=== PATIENT | female | born 1970 | race Caucasian/White ===

== ENCOUNTER 2020-03-22 04:18 | Emergency (ER) | payer SELFPAY ==
[~2020-03-22] VITALS: Ht 172.7 cm; Wt 84.0 kg
[2020-03-22] MEDS ORDERED: NS IV 1000 ML 1,000 ML ONE (05:04)
[2020-03-22] MEDS ORDERED: LORazepam INJ 2 MG/ML (ATIVAN) VIAL IVP ONE (05:30)
--- NOTE | 2020-03-22 05:38 | ED General ---
General Chief Complaint: Overdose Stated Complaint: MEDICATION OVERDOSE Source of Information: Patient Exam Limitations: No Limitations (JIM BRYANT DO) History of Present Illness Date Seen by Provider: Mar 22, 2020 Time Seen by Provider: 17:15 Initial Comments The patient is a pleasant 49-year-old female who presents for evaluation after an accidental overdose of her flecainide. She states that she takes tizanidine muscle relaxer to help with her sleep and this medication looks "exactly the same as my flecainide". She says that tonight she was having difficulty sleeping so she took a dose of the medicine in the evening before bedtime and then she took 3 more at 3:30 AM because she was still not able to sleep. She later found out that all these medications were flecainide and none of them were tizanidine. She states this was completed and accident when she was not trying to harm herself. She denies any depression or suicidal thoughts. She is alert and oriented 4, calm, and appears to be in no distress this time. She states that is normal for her to take 2-3 of her tizanidine pills and an effort to get sleep. Upon arrival the patient's heart rate was in the 140s. Timing/Duration: 1-3 Hours Severity: Moderate Associated Systoms: Denies Symptoms (JIM BRYANT DO) Allergies and Home Medications Allergies Coded Allergies: No Known Drug Allergies (Unverified , 03/22/20) Patient Home Medication List Home Medication List Reviewed: Yes (JIM BRYANT DO) Review of Systems Review of Systems Constitutional: no symptoms reported EENTM: no symptoms reported Respiratory: no symptoms reported Cardiovascular: palpitations Gastrointestinal: no symptoms reported Genitourinary: no symptoms reported Musculoskeletal: no symptoms reported Skin: no symptoms reported Psychiatric/Neurological: Anxiety; Denies Depressed, Denies Emotional Problems Hematologic/Lymphatic: No Symptoms Reported Immunological/Allergic: no symptoms reported (JIM BRYANT DO) All Other Systems Reviewed Negative Unless Noted: Yes (JIM BRYANT DO) Past Unazzas-Avresb-Sgmxaw Hx Past Med/Social Hx: Reviewed Nursing Past Med/Soc Hx (JIM BRYANT DO) Patient Social History Recent Foreign Travel: No Contact w/Someone Who Travel: No (JIM BRYANT DO) Physical Exam Vital Signs Vital Signs - First Documented 03/22/20 03/22/20 05:21 08:50 Temp 36.6 Pulse 140 Resp 17 B/P (MAP) 190/108 (135) Pulse Ox 99 O2 Delivery Room Air (FARRAH NORRIS DO) Vital Signs Capillary Refill : Less Than 3 Seconds (JIM BRYANT DO) Height, Weight, BMI Height: '" Weight: lbs. oz. kg; 28.00 BMI Method: General Appearance: No Apparent Distress, WD/WN, Anxious Eyes: Bilateral Eye Normal Inspection, Bilateral Eye PERRL, Bilateral Eye EOMI HEENT: PERRL/EOMI, Pharynx Normal Neck: Full Range of Motion, Non Tender, Supple Respiratory: Lungs Clear, Normal Breath Sounds, No Accessory Muscle Use, No Respiratory Distress Cardiovascular: No Edema, No Murmur, Tachycardia Gastrointestinal: Normal Bowel Sounds, No Pulsatile Mass, Soft Extremity: Normal Capillary Refill, Normal Range of Motion, Non Tender Neurologic/Psychiatric: Alert, Oriented x3, No Motor/Sensory Deficits, Normal Mood/Affect, early childhood associate II-XII Norm as Tested; No Depressed Affect Skin: Normal Color, Warm/Dry (JIM BRYANT DO) Progress/Results/Core Measures Suspected Sepsis SIRS Temperature: Pulse: 140 Respiratory Rate: 17 Blood Pressure 190 /108 Mean: 135 (JIM BRYANT DO) Results/Orders Lab Results Laboratory Tests Test 03/22/20 05:05 03/22/20 05:52 Range/Units White Blood Count 11.4 H 4.3-11.0 10^3/uL Red Blood Count 4.62 4.35-5.85 10^6/uL Hemoglobin 13.4 11.5-16.0 G/DL Hematocrit 41 35-52 % Mean Corpuscular Volume 89 80-99 FL Mean Corpuscular Hemoglobin 29 25-34 PG Mean Corpuscular Hemoglobin Concent 33 32-36 G/DL Red Cell Distribution Width 13.3 10.0-14.5 % Platelet Count 423 H 130-400 10^3/uL Mean Platelet Volume 8.8 7.4-10.4 FL Neutrophils (%) (Auto) 64 42-75 % Lymphocytes (%) (Auto) 25 12-44 % Monocytes (%) (Auto) 6 0-12 % Eosinophils (%) (Auto) 4 0-10 % Basophils (%) (Auto) 1 0-10 % Neutrophils # (Auto) 7.3 1.8-7.8 X 10^3 Lymphocytes # (Auto) 2.9 1.0-4.0 X 10^3 Monocytes # (Auto) 0.7 0.0-1.0 X 10^3 Eosinophils # (Auto) 0.4 H 0.0-0.3 10^3/uL Basophils # (Auto) 0.1 0.0-0.1 10^3/uL Sodium Level 141 135-145 MMOL/L Potassium Level 3.7 3.6-5.0 MMOL/L Chloride Level 99 98-107 MMOL/L Carbon Dioxide Level 24 21-32 MMOL/L Anion Gap 18 H 5-14 MMOL/L Blood Urea Nitrogen 10 7-18 MG/DL Creatinine 0.75 0.60-1.30 MG/DL Estimat Glomerular Filtration Rate > 60 BUN/Creatinine Ratio 13 Glucose Level 80 70-105 MG/DL Calcium Level 9.7 8.5-10.1 MG/DL Corrected Calcium 9.3 8.5-10.1 MG/DL Magnesium Level 1.9 1.6-2.4 MG/DL Total Bilirubin 0.3 0.1-1.0 MG/DL Aspartate Amino Transf (AST/SGOT) 31 5-34 U/L Alanine Aminotransferase (ALT/SGPT) 42 0-55 U/L Alkaline Phosphatase 135 40-136 U/L Troponin I < 0.30 <0.30 NG/ML Total Protein 7.7 6.4-8.2 GM/DL Albumin 4.5 3.2-4.5 GM/DL Salicylates Level < 0.3 L 5.0-20.0 MG/DL Acetaminophen Level < 10 L 10-30 UG/ML Serum Alcohol < 10 <10 MG/DL Urine Color YELLOW Urine Clarity CLEAR Urine pH 5.5 5-9 Urine Specific [place] 1.015 L 1.016-1.022 Urine Protein NEGATIVE NEGATIVE Urine Glucose (UA) NEGATIVE NEGATIVE Urine Ketones NEGATIVE NEGATIVE Urine Nitrite NEGATIVE NEGATIVE Urine Bilirubin NEGATIVE NEGATIVE Urine Urobilinogen 0.2 < = 1.0 MG/DL Urine Leukocyte Esterase TRACE H NEGATIVE Urine RBC (Auto) 1+ H NEGATIVE Urine RBC 5-10 H /HPF Urine WBC 5-10 H /HPF Urine Squamous Epithelial Cells RARE /HPF Urine Crystals NONE /LPF Urine Bacteria NEGATIVE /HPF Urine Casts NONE /LPF Urine Mucus NEGATIVE /LPF Urine Culture Indicated YES Urine Opiates Screen POSITIVE H NEGATIVE Urine Oxycodone Screen NEGATIVE NEGATIVE Urine Methadone Screen NEGATIVE NEGATIVE Urine Propoxyphene Screen NEGATIVE NEGATIVE Urine Barbiturates Screen NEGATIVE NEGATIVE Ur Tricyclic Antidepressants Screen NEGATIVE NEGATIVE Urine Phencyclidine Screen NEGATIVE NEGATIVE Urine Amphetamines Screen POSITIVE H NEGATIVE Urine Methamphetamines Screen NEGATIVE NEGATIVE Urine Benzodiazepines Screen POSITIVE H NEGATIVE Urine Cocaine Screen NEGATIVE NEGATIVE Urine Cannabinoids Screen NEGATIVE NEGATIVE (FARRAH NORRIS DO) Medications Given in ED Current Medications Medications Dose Ordered Sig/Monica Route Start Time Stop Time Status Last Admin Dose Admin Lorazepam 1 mg ONCE ONCE IVP 03/22/20 05:30 03/22/20 05:31 DC 03/22/20 05:42 1 MG Sodium Chloride 1,000 ml @ ud STK-MED ONCE .ROUTE 03/22/20 05:04 03/22/20 05:13 DC 03/22/20 05:15 1,000 MLS/HR (FARRAH NORRIS DO) Vital Signs/I&O 03/22/20 03/22/20 05:21 08:50 Temp 36.6 36.6 Pulse 140 120 Resp 17 17 B/P (MAP) 190/108 (135) 163/91 (135) Pulse Ox 99 O2 Delivery Room Air Room Air (FARRAH NORRIS DO) Vital Signs/I&O Capillary Refill : Less Than 3 Seconds (JIM BRYANT DO) Progress Note : Progress Note @0600 - Pt care transferred from Dr. Bryant to Dr. Norris at this time. (JIM BRYANT DO) Progress Note : Progress Note Laya - 0900 - patient has been observed and has been asymptomatic except for feeling palpitations and she has been tachycardic in the 120 to 130 range. I spoke to the poison center and they said that this degree of tachycardia is atypical and they recommended admission to the ICU for further observation. I spoke to the patient about this and reexamined her and she said she has been off her propranolol for at least 2-3 days and she has her RX ready to [facility] and she would prefer to go home. I told her why I recommend admission to the hospital as her vital signs are abnormal and the half-life her flecainide is at least 20 hours and she could suffer further arrhythmias and potentially . She verbalized understanding and accepted these risks however she then asked me to call her primary care provider Dr. ARTEAGA. I did call him on his cell phone and he said to admission would be reasonable however if the patient feels strongly against staying in the hospital and that is her choice. I relayed this information the patient and she decided that she does want to go home and said she would go directly to [facility] her propranolol and she would take her heart rate routinely today. She did not know for certain her resting heart rate but does think it is faster possibly in the 90-120 range. Again patient will be released however it is against my medical recommendations and she accepted the risks of and disability by doing so. (FARRAH NORRIS DO) ECG EKG : Comment @0505 - Sinus tachycardia, rate of 129, normal axis, no acute ischemic findings noted, no STEMI, reviewed and interpreted by myself (JIM BRYANT DO) Departure Impression Primary Impression: Accidental overdose Additional Impression: Tachycardia Disposition: 01 HOME, SELF-CARE Condition: Improved Departure-Patient Inst. Referrals: SARAHY ARTEAGA DO (PCP/Family) Primary Care Physician Patient Instructions: ALCOHOL AND SUBSTANCE ABUSE JIM BRYANT DO Mar 22, 2020 05:38 FARRAH NORRIS DO Mar 22, 2020 09:29
[2020-03-22 05:48] LABS: HEMATOCRIT 41 % (35-52); HEMOGLOBIN 13.4 G/DL (11.5-16.0); MEAN CORPUSCULAR HEMOGLOBIN 29 PG (25-34); MEAN CORPUSCULAR HGB CONC 33 G/DL (32-36); MEAN CORPUSCULAR VOLUME 89 FL (80-99); WHITE BLOOD COUNT 11.4 10^3/uL (4.3-11.0)
[2020-03-22 05:49] LABS: BASOPHILS % (AUTO) 1 % (0-10); EOSINOPHILS % (AUTO) 4 % (0-10); LYMPHOCYTES # (AUTO) 2.9 X 10^3 (1.0-4.0); LYMPHOCYTES % (AUTO) 25 % (12-44); MEAN PLATELET VOLUME 8.8 FL (7.4-10.4); MONOCYTES % (AUTO) 6 % (0-12); NEUTROPHILS # (AUTO) 7.3 X 10^3 (1.8-7.8); NEUTROPHILS % (AUTO) 64 % (42-75); PLATELET COUNT 423 10^3/uL (130-400); RED CELL DISTRIBUTION WIDTH 13.3 % (10.0-14.5)
[2020-03-22 05:50] LABS: BASOPHILS # (AUTO) 0.1 10^3/uL (0.0-0.1); EOSINOPHILS # (AUTO) 0.4 10^3/uL (0.0-0.3); MONOCYTES # (AUTO) 0.7 X 10^3 (0.0-1.0)
[2020-03-22 06:12] LABS: AMPHETAMINE SCREEN, URINE POSITIVE (NEGATIVE); BARBITURATE SCREEN URINE NEGATIVE (NEGATIVE); BENZODIAZEPINES SCREEN URINE POSITIVE (NEGATIVE); CANNABINOID SCREEN, URINE NEGATIVE (NEGATIVE); COCAINE SCREEN URINE NEGATIVE (NEGATIVE); METHADONE STAT NEGATIVE (NEGATIVE); METHAMPHETAMINE SCREEN URINE S NEGATIVE (NEGATIVE); OPIATE SCREEN URINE POSITIVE (NEGATIVE); OXYCODONE STAT NEGATIVE (NEGATIVE); PROPOXYPHENE STAT NEGATIVE (NEGATIVE); TRICYCLIC ANTIDEPRESSANTS SCRE NEGATIVE (NEGATIVE)
[2020-03-22 06:13] LABS: BACTERIA,URINE NEGATIVE /HPF; BILIRUBIN,URINE NEGATIVE (NEGATIVE); CLARITY,URINE CLEAR; COLOR,URINE YELLOW; GLUCOSE, URINE (UA) NEGATIVE (NEGATIVE); KETONES,URINE NEGATIVE (NEGATIVE); LEUKOCYTE ESTERASE ,URINE TRACE (NEGATIVE); NITRITE,URINE NEGATIVE (NEGATIVE); PH,URINE 5.5 (5-9); PROTEIN,URINE NEGATIVE (NEGATIVE); SQUAMOUS EPITHELIAL CELL,UR RARE /HPF
[2020-03-22 06:15] LABS: ACETAMINOPHEN < 10 UG/ML (10-30); SALICYLATE < 0.3 MG/DL (5.0-20.0)
--- NOTE | 2020-03-22 06:15 | NUR ---
[facility] CALLED TO CHECK ON THE PT.
[2020-03-22 06:16] LABS: ALANINE AMINOTRANSFERASE 42 U/L (0-55); ALBUMIN 4.5 GM/DL (3.2-4.5); ALKALINE PHOSPHATASE 135 U/L (40-136); BILIRUBIN,TOTAL 0.3 MG/DL (0.1-1.0); BUN/CREATININE RATIO 13; CALCIUM 9.7 MG/DL (8.5-10.1); CARBON DIOXIDE 24 MMOL/L (21-32); CHLORIDE 99 MMOL/L (98-107); CREATININE SERUM 0.75 MG/DL (0.60-1.30); GFR ESTIMATED > 60; GLUCOSE 80 MG/DL (70-105); MAGNESIUM 1.9 MG/DL (1.6-2.4); POTASSIUM 3.7 MMOL/L (3.6-5.0); SODIUM 141 MMOL/L (135-145); TOTAL PROTEIN 7.7 GM/DL (6.4-8.2)
[2020-03-22 08:50] VITALS: BP 163/91
== END 2020-03-22 08:54 | disposition home or self-care (01) ==
LOC: ER FS 04:55
DX: T46.2X1A Poisoning by other antidysrhythmic drugs, accidental (unintentional), initial encounter (principal); R00.0 Tachycardia, unspecified
CPT/HCPCS: 36415; 80053; 80306; 80320; 80329; 81000; 83735; 84484; 85025; 87088; 93005; 93041

== ENCOUNTER 2022-03-17 21:05 | Emergency (ER) | payer SELFPAY ==
[~2022-03-17] VITALS: Ht 172 cm; Wt 90.7 kg
[2022-03-17] MEDS ORDERED: ONDANSETRON 4 MG (ZOFRAN) ORAL DISSOLVE TAB PO STA (21:28)
[2022-03-17] MEDS ORDERED: ACETAMINOPHEN 500 MG TAB (TYLENOL) PO ONE (21:30)
[2022-03-17] MEDS ORDERED: meTOprolol TARTRATE 25 MG (LOPRESSOR) TABLET PO ONE (21:30)
--- NOTE | 2022-03-17 21:36 | ED Lower Extremity ---
General Chief Complaint: Lower Extremity Stated Complaint: R LEG BURNING,PAINFUL TO TOUCH Nursing Triage Note: Pt c/o right thigh pain/numbness x 3 months but reports pain has become worse todayy. Pt denies SOA, injury, CP. Pt denies right side calf pain. Pt took gabapentin [employer]. Source: patient Exam Limitations: no limitations History of Present Illness Date Seen by Provider: March 17, 2022 Time Seen by Provider: 21:10 Initial Comments Patient is a 51-year-old female with history of cardiac arrhythmia who presents with multiple medical complaints. She complains of dizziness, palpitations and nausea after running out of metoprolol yesterday. She is currently on flecainide for cardiac arrhythmia. She is compliant with flecainide. She also complains of right anterior mid thigh pain for the past 3 months. She rates the pain 10 out of 10 on her right thigh. Denies injury. Patient is currently taking Neurontin. No shortness of breath. No fever chills or sweats. No other acute symptoms or complaints. Pain/Injury Location: right thigh Method of Injury: other Modifying Factors: Improves With Other Allergies and Home Medications Allergies Coded Allergies: No Known Drug Allergies (Unverified , 03/22/20) Patient Home Medication List Home Medication List Reviewed: Yes Review of Systems Constitutional: see HPI EENTM: no symptoms reported Respiratory: no symptoms reported Cardiovascular: palpitations Musculoskeletal: muscle pain Skin: see HPI Psychiatric/Neurological: No Symptoms Reported, Anxiety Past Vdjyqsw-Gwmoya-Rwujmb Hx Patient Social History Tobacco Use?: No Use of E-Cig and/or Vaping dev: No Substance use?: No Alcohol Use?: No Pt feels they are or have been: No Immunizations Up To Date Influenza Vaccine Up-to-Date: No; Not Current First/Initial COVID19 Vaccinat: Pfizer Seasonal Allergies Seasonal Allergies: No Past Medical History Surgeries: Yes Tonsillectomy Respiratory: No Cardiac: Yes Atrial Fibrillation, Hypertension, Irregular Heartbeat, Palpitations Neurological: No Genitourinary: No Gastrointestinal: No Musculoskeletal: No Endocrine: No HEENT: No Cancer: No Psychosocial: Yes Anxiety Integumentary: No Blood Disorders: No Physical Exam Vital Signs Vital Signs - First Documented 03/17/22 21:20 Temp 37.7 Pulse 135 Resp 20 B/P (MAP) 144/113 (123) Pulse Ox 98 O2 Delivery Room Air Capillary Refill : Less Than 3 Seconds Height, Weight, BMI Height: '" Weight: lbs. oz. kg; 30.00 BMI Method: General Appearance: WD/WN, no apparent distress, other (anxious) HEENT: normal ENT inspection Neck: full range of motion, supple Cardiovascular: tachycardia Respiratory: lungs clear Legs: right leg other (Right thigh, no tenderness or swelling. No erythema or induration.) Neurologic/Psychiatric: no motor/sensory deficits, alert, oriented x 3 Progress/Results/Core Measures Results/Orders My Orders Orders - MICHELLE PEARL DO Ondansetron Oral Dissolve Tab (Zofran (03/17/22 21:28) Metoprolol Tartrate (Ir) Tab (Lopressor (03/17/22 21:30) Acetaminophen Tablet (Tylenol Tablet) (03/17/22 21:30) Vital Signs/I&O 03/17/22 21:20 Temp 37.7 Pulse 135 Resp 20 B/P (MAP) 144/113 (123) Pulse Ox 98 O2 Delivery Room Air Blood Pressure Mean: 123 Departure Communication (Admissions) Patient was tachyarrhythmia currently noncompliant with medication. Chronic right leg pain without physical finding. Patient denies chest pain or shortness of breath patient blood pressure/tachyarrhythmia treated with missed home medication with clinical improvement. Recommendations are continued therapeutic and supportive care with PCP/cardiology follow-up for further management. Impression Primary Impression: Right thigh pain Additional Impressions: Palpitations Nausea Disposition: 01 HOME, SELF-CARE Condition: Stable Departure-Patient Inst. Decision time for Depature: 21:35 Referrals: SARAHY ARTEAGA DO (PCP/Family) Primary Care Physician Patient Instructions: Chronic Neck Pain (DC), Nausea and Vomiting, Adult, Palpitations ED Add. Discharge Instructions: Please fill medications tomorrow morning and take as directed. Follow-up with your PCP and/or mail censor early next week for reevaluation and further management. Return to the ED if new or worsening symptoms. All discharge instructions reviewed with patient and/or family. Voiced understanding. Scripts Metoprolol Tartrate (Metoprolol Tartrate) 25 Mg Tablet 50 MG PO BID, #60 TAB Prov: MICHELLE PEARL DO 03/17/22 Ondansetron (Ondansetron Odt) 4 Mg Tab.rapdis 4 MG PO Q6H, #10 TAB Prov: MICHELLE PEARL DO 03/17/22 MICHELLE PEARL DO March 17, 2022 21:36
[2022-03-17] MEDS ORDERED: ONDA4TAB11 PO (21:37)
[2022-03-17] MEDS ORDERED: METO-333 PO (21:37)
[2022-03-17 21:52] VITALS: BP 141/60
== END 2022-03-17 21:52 | disposition home or self-care (01) ==
LOC: EDUNIT# 21:05 → ER FS 21:08
DX: G89.29 Other chronic pain (principal); M79.651 Pain in right thigh; R00.2 Palpitations; R11.0 Nausea; R00.0 Tachycardia, unspecified; I10 Essential (primary) hypertension; T44.7X6A Underdosing of beta-adrenoreceptor antagonists, initial encounter; Z91.14 Patient's other noncompliance with medication regimen; Z79.899 Other long term (current) drug therapy
CPT/HCPCS: 99283

== ENCOUNTER 2022-04-21 17:19 | Emergency (ER) | payer SELFPAY ==
[~2022-04-21] VITALS: Ht 172.7 cm; Wt 90.7 kg
[~2022-04-21 17:19] MED LIST: METO-333 PO; ONDA4TAB11 PO
--- NOTE | 2022-04-21 17:27 | ED Fall/Injury ---
General Chief Complaint: Trauma-Non Activation Stated Complaint: FALL; HEAD INJ Source: patient Exam Limitations: no limitations History of Present Illness Date Seen by Provider: Apr 21, 2022 Time Seen by Provider: 17:21 Initial Comments 51yoF with PMH of HTN coming in due to concerns for a head injury. She tripped and fell last night and believes she had LOC after hitting her head. She also states she may have "hit her head 5 times". Also is concerned she has rolled both her ankles and this is leading to the multiple falls. Most recent fall was last night. Has a mild headache that is constant and throbbing with associated nausea but no vomiting. Has not had any medicine as of yet for her headache or nausea. Denies any CP, SOB, abd pain, diarrhea, vision changes, weakness, numbness, or any other concerns. LMP was about a year ago and she believes she is in menopause. Allergies and Home Medications Allergies Coded Allergies: No Known Drug Allergies (Unverified , 03/22/20) Patient Home Medication List Home Medication List Reviewed: Yes Metoprolol Tartrate (Metoprolol Tartrate) 25 Mg Tablet, 50 MG PO BID Prescribed by: MICHELLE PEARL on 03/17/222136 Ondansetron (Ondansetron Odt) 4 Mg Tab.rapdis, 4 MG PO Q6H Prescribed by: MICHELLE PEARL on 03/17/222136 Review of Systems Review of Systems Constitutional: No fever Eyes: Denies Blurred Vision Ears, Nose, Mouth, Throat: no symptoms reported Respiratory: no symptoms reported Cardiovascular: no symptoms reported Gastrointestinal: no symptoms reported Genitourinary: no symptoms reported Musculoskeletal: joint pain Skin: no symptoms reported Psychiatric/Neurological: No Symptoms Reported All Other Systems Reviewed Negative Unless Noted: Yes Past Bjdallx-Pywlaz-Dqrdfx Hx Patient Social History Tobacco Use?: No Substance use?: No Alcohol Use?: No Immunizations Up To Date First/Initial COVID19 Vaccinat: Pfizer Seasonal Allergies Seasonal Allergies: No Past Medical History Surgeries: Yes Tonsillectomy Respiratory: No Cardiac: Yes Atrial Fibrillation, Hypertension, Irregular Heartbeat, Palpitations Neurological: No Genitourinary: No Gastrointestinal: No Musculoskeletal: No Endocrine: No HEENT: No Cancer: No Psychosocial: Yes Anxiety Integumentary: No Blood Disorders: No Physical Exam Vital Signs Vital Signs - First Documented 04/21/22 17:22 Temp 36.7 Pulse 79 Resp 16 B/P (MAP) 113/67 (82) Pulse Ox 97 O2 Delivery Room Air Capillary Refill : Height, Weight, BMI Height: '" Weight: lbs. oz. kg; 30.00 BMI Method: General Appearance: WD/WN, no apparent distress HEENT: PERRL/EOMI, normal ENT inspection, pharynx normal Neck: non-tender, full range of motion, supple, normal inspection Cardiovascular: regular rate, rhythm, no edema, no murmur Respiratory: chest non-tender, lungs clear, normal breath sounds, no respiratory distress, no accessory muscle use Gastrointestinal: normal bowel sounds, non tender, soft; No distended, No guarding, No rebound Back: normal inspection, no CVA tenderness, no vertebral tenderness Extremities: normal range of motion, non-tender, normal inspection, no pedal edema, no calf tenderness, normal capillary refill 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, no motor/sensory deficits, alert, normal mood/affect, oriented x 3, other (normal gait, normal finger to nose) Skin: normal color, warm/dry Lymphatic: no adenopathy [place] Coma Score Best Eye Response: (4) Open Spontaneously Best Verbal Response: (5) Oriented Best Motor Response: (6) Obeys Commands Progress/Results/Core Measures Results/Orders Lab Results Laboratory Tests Test 04/21/22 18:00 04/21/22 18:49 Range/Units White Blood Count 7.1 4.3-11.0 10^3/uL Red Blood Count 3.36 L 3.80-5.11 10^6/uL Hemoglobin 8.9 L 11.5-16.0 g/dL Hematocrit 28 L 35-52 % Mean Corpuscular Volume 82 80-99 fL Mean Corpuscular Hemoglobin 27 25-34 pg Mean Corpuscular Hemoglobin Concent 32 32-36 g/dL Red Cell Distribution Width 14.2 10.0-14.5 % Platelet Count 275 130-400 10^3/uL Mean Platelet Volume 8.6 L 9.0-12.2 fL Immature Granulocyte % (Auto) 1 % Neutrophils (%) (Auto) 73 42-75 % Lymphocytes (%) (Auto) 11 L 12-44 % Monocytes (%) (Auto) 14 H 0-12 % Eosinophils (%) (Auto) 1 0-10 % Basophils (%) (Auto) 0 0-10 % Neutrophils # (Auto) 5.2 1.8-7.8 10^3/uL Lymphocytes # (Auto) 0.8 L 1.0-4.0 10^3/uL Monocytes # (Auto) 1.0 0.0-1.0 10^3/uL Eosinophils # (Auto) 0.1 0.0-0.3 10^3/uL Basophils # (Auto) 0.0 0.0-0.1 10^3/uL Immature Granulocyte # (Auto) 0.0 0.0-0.1 10^3/uL Sodium Level 131 L 135-145 MMOL/L Potassium Level 4.5 3.6-5.0 MMOL/L Chloride Level 95 L 98-107 MMOL/L Carbon Dioxide Level 22 21-32 MMOL/L Anion Gap 14 5-14 MMOL/L Blood Urea Nitrogen 38 H 7-18 MG/DL Creatinine 1.39 H 0.60-1.30 MG/DL Estimat Glomerular Filtration Rate 46 BUN/Creatinine Ratio 27 Glucose Level 108 H 70-105 MG/DL Calcium Level 8.8 8.5-10.1 MG/DL Corrected Calcium 9.1 8.5-10.1 MG/DL Total Bilirubin 0.4 0.1-1.0 MG/DL Aspartate Amino Transf (AST/SGOT) 32 5-34 U/L Alanine Aminotransferase (ALT/SGPT) 24 0-55 U/L Alkaline Phosphatase 117 40-136 U/L Total Protein 7.2 6.4-8.2 GM/DL Albumin 3.6 3.2-4.5 GM/DL Salicylates Level < 0.3 L 5.0-20.0 MG/DL Acetaminophen Level 21 10-30 UG/ML Serum Alcohol < 10 <10 MG/DL Urine Opiates Screen NEGATIVE NEGATIVE Urine Oxycodone Screen NEGATIVE NEGATIVE Urine Methadone Screen NEGATIVE NEGATIVE Urine Propoxyphene Screen NEGATIVE NEGATIVE Urine Barbiturates Screen NEGATIVE NEGATIVE Ur Tricyclic Antidepressants Screen NEGATIVE NEGATIVE Urine Phencyclidine Screen NEGATIVE NEGATIVE Urine Amphetamines Screen NEGATIVE NEGATIVE Urine Methamphetamines Screen NEGATIVE NEGATIVE Urine Benzodiazepines Screen POSITIVE H NEGATIVE Urine Cocaine Screen NEGATIVE NEGATIVE Urine Cannabinoids Screen NEGATIVE NEGATIVE My Orders Orders - MAIKEL MONTEZ MD Ct Head Wo (04/21/22 17:28) Ondansetron Oral Dissolve Tab (Zofran (04/21/22 17:28) Acetaminophen Tablet (Tylenol Tablet) (04/21/22 17:30) Ankle 3 View Bilateral (04/21/22 17:31) Acetaminophen (04/21/22 17:53) Alcohol (04/21/22 17:53) Cbc With Automated Diff (04/21/22 17:53) Comprehensive Metabolic Panel (04/21/22 17:53) Drug Screen Stat (Urine) (04/21/22 17:53) Salicylate (04/21/22 17:53) Ed Iv/Invasive Line Start (04/21/22 17:53) Ns Iv 1000 Ml (Sodium Chloride 0.9%) (04/21/22 18:00) Ekg Tracing (04/21/22 17:53) Medications Given in ED Current Medications Medications Dose Ordered Sig/Monica Route Start Time Stop Time Status Last Admin Dose Admin Acetaminophen 1,000 mg ONCE ONCE PO 04/21/22 17:30 04/21/22 17:31 DC 04/21/22 17:35 1,000 MG Vital Signs/I&O 04/21/22 17:22 Temp 36.7 Pulse 79 Resp 16 B/P (MAP) 113/67 (82) Pulse Ox 97 O2 Delivery Room Air Progress Progress Note : Progress Note 51-year-old female with above history coming in after multiple episodes falling and hitting her head. ABCs were intact, GCS 15, vital stable on presentation. She is slightly slurring her words but her neuro exam is otherwise intact. She does have orthostatic hypotension on my exam. Blood pressure around 110 systolic and dropped down to 81 on standing with her feeling lightheaded. She says she has been eating and drinking significantly less, and on exam her tongue is very dry. An IV was placed and she was given 2 L of IV fluids as well as basic labs obtained. The patient is adamant that she is not using any drugs or drinking any alcohol. Possible she is just concussed. CT head my interpretation with no obvious bleed or acute abnormality. She also was having some tenderness in her ankles which I do not see any swelling, x-rays are nega tive on my interpretation for fracture or dislocation. Given Tylenol for pain. Orthostatics improved after IV fluids. Later on it came out that the patient has been taking Xanax, and this would make sense for why she is slightly sedated. She is also been taking muscle relaxers. She is able to walk, is no longer orthostatic, and is alert and oriented. She has family to go home with while she sleeps. I believe she is stable for discharge with outpatient follow- up. She was sent home with strict return precautions Initial ECG Impression Date: Apr 21, 2022 Initial ECG Impression Time: 18:02 Initial ECG Rate: 72 Initial ECG Rhythm: Normal Sinus Comment Normal sinus, narrow QRS, normal axis, no significant ST changes or T wave abnormalities Diagnostic Imaging Diagonstic Imaging: Xray (bilateral ankles), CT (head) Comments NAME: PRETTY DICKERSON [facility] REC#: [id number] PT STATUS: REG ER : 1970 PHYSICIAN: MAIKEL MONTEZ MD ADMIT DATE: 04/21/22/ER FS Draft Date of Exam:04/21/22 ANKLE 3 VIEW BILATERAL INDICATION: Ankle pain. COMPARISON: None available. TECHNIQUE: Six radiographs of bilateral ankles dated April 21, 2022. FINDINGS: No acute fracture or dislocation. No destructive osseous process. The talar domes are unremarkable. The ankle mortises are well maintained. No significant calcaneal enthesophyte. No suspicious radiopaque foreign body. IMPRESSION: Unremarkable examination for age without acute osseous abnormality. Dictated on workstation # [id number] Dict: 04/21/22 1751 Trans: 04/21/22 1755 [facility] [id number] Interpreted by: SABRINA RODRIGUEZ MD Electronically signed by: [facility] [place], [place] NAME: PRETTY DICKERSON [facility] REC#: [id number] PT STATUS: REG ER : 1970 PHYSICIAN: MAIKEL MONTEZ MD ADMIT DATE: 04/21/22/ER FS Draft Date of Exam:04/21/22 CT HEAD WO PROCEDURE: CT head without contrast. TECHNIQUE: Multiple contiguous axial images were obtained through the brain without the use of intravenous contrast. Auto Exposure Controls were utilized during the CT exam to meet ALARA standards for radiation dose reduction. INDICATION: Fall, headache, pain. COMPARISON: None available. FINDINGS: Mild atrophy. No intracranial hemorrhage. No intracranial mass, mass effect, midline shift, herniation, hydrocephalus or extra-axial fluid collection. No CT evidence of an acute ischemic infarction. The orbits are unremarkable. Mucosal thickening with fluid within the left maxillary sinus. Otherwise, the paranasal sinuses are clear. The calvarium and extracalvarial soft tissues are unremarkable. IMPRESSION: 1. Mucosal thickening and fluid within the left maxillary sinus, which may relate to acute sinusitis. Given mucoperiosteal thickening of the left maxillary sinus ahle, a chronic component may be present. 2. No acute intracranial abnormality. Dictated on workstation # [id number] Dict: 04/21/22 1749 Trans: 04/21/22 1800 PJE [id number] Interpreted by: SABRINA RODRIGUEZ MD Electronically signed by: Departure Impression Primary Impression: Concussion Qualified Codes: S06.0X1A - Concussion with loss of consciousness of 30 minutes or less, initial encounter Additional Impressions: Orthostatic hypotension Bilateral ankle pain Qualified Codes: M25.571 - Pain in right ankle and joints of right foot; M25.572 - Pain in left ankle and joints of left foot Disposition: 01 HOME, SELF-CARE Condition: Stable Departure-Patient Inst. Decision time for Depature: 19:09 Referrals: SARAHY ARTEAGA DO (PCP) Primary Care Physician Patient Instructions: Concussion, Adult ED Add. Discharge Instructions: You have a concussion as well as a lot of your passing out is due to the Xanax and tizanidine that you are taking. I would not take any muscle relaxers or Xanax until at least tomorrow night to try to let your body metabolize this. After that I would only take 1 per night as needed. Drink plenty of fluids. The CT of your head is normal without any bleeding and your x-rays of your ankles/feet do not show anything broken. Work/School Note: Work Release Form Date Seen in the Emergency Department: Apr 21, 2022 Return to Work: Apr 23, 2022 Restrictions: No Restrictions MAIKEL MONTEZ MD Apr 21, 2022 17:27
[2022-04-21] MEDS ORDERED: ONDANSETRON 4 MG (ZOFRAN) ORAL DISSOLVE TAB PO STA (17:28)
[2022-04-21] MEDS ORDERED: ACETAMINOPHEN 500 MG TAB (TYLENOL) PO ONE (17:30)
--- NOTE | 2022-04-21 17:55 | Diagnostic Imaging Report ---
INDICATION: Ankle pain. COMPARISON: None available. TECHNIQUE: Six radiographs of bilateral ankles dated April 21, 2022. FINDINGS: No acute fracture or dislocation. No destructive osseous process. The talar domes are unremarkable. The ankle mortises are well maintained. No significant calcaneal enthesophyte. No suspicious radiopaque foreign body. IMPRESSION: Unremarkable examination for age without acute osseous abnormality. Dictated by: Dictated on workstation # [id number]
[2022-04-21] MEDS ORDERED: NS IV 1000 ML 1,000 ML IV SCH (18:00)
--- NOTE | 2022-04-21 18:00 | Diagnostic Imaging Report ---
PROCEDURE: CT head without contrast. TECHNIQUE: Multiple contiguous axial images were obtained through the brain without the use of intravenous contrast. Auto Exposure Controls were utilized during the CT exam to meet ALARA standards for radiation dose reduction. INDICATION: Fall, headache, pain. COMPARISON: None available. FINDINGS: Mild atrophy. No intracranial hemorrhage. No intracranial mass, mass effect, midline shift, herniation, hydrocephalus or extra-axial fluid collection. No CT evidence of an acute ischemic infarction. The orbits are unremarkable. Mucosal thickening with fluid within the left maxillary sinus. Otherwise, the paranasal sinuses are clear. The calvarium and extracalvarial soft tissues are unremarkable. IMPRESSION: 1. Mucosal thickening and fluid within the left maxillary sinus, which may relate to acute sinusitis. Given mucoperiosteal thickening of the left maxillary sinus hale, a chronic component may be present. 2. No acute intracranial abnormality. Dictated by: Dictated on workstation # [id number]
[2022-04-21 18:02] LABS: BASOPHILS % (AUTO) 0 % (0-10); EOSINOPHILS # (AUTO) 0.1 10^3/uL (0.0-0.3); EOSINOPHILS % (AUTO) 1 % (0-10); HEMATOCRIT 28 % (35-52); HEMOGLOBIN 8.9 g/dL (11.5-16.0); LYMPHOCYTES # (AUTO) 0.8 10^3/uL (1.0-4.0); LYMPHOCYTES % (AUTO) 11 % (12-44); MEAN CORPUSCULAR HEMOGLOBIN 27 pg (25-34); MEAN CORPUSCULAR HGB CONC 32 g/dL (32-36); MEAN CORPUSCULAR VOLUME 82 fL (80-99); MEAN PLATELET VOLUME 8.6 fL (9.0-12.2); MONOCYTES % (AUTO) 14 % (0-12); NEUTROPHILS # (AUTO) 5.2 10^3/uL (1.8-7.8); NEUTROPHILS % (AUTO) 73 % (42-75); PLATELET COUNT 275 10^3/uL (130-400); WHITE BLOOD COUNT 7.1 10^3/uL (4.3-11.0)
[2022-04-21 18:35] LABS: ACETAMINOPHEN 21 UG/ML (10-30); ALANINE AMINOTRANSFERASE 24 U/L (0-55); ALBUMIN 3.6 GM/DL (3.2-4.5); ALKALINE PHOSPHATASE 117 U/L (40-136); BILIRUBIN,TOTAL 0.4 MG/DL (0.1-1.0); BUN/CREATININE RATIO 27; CALCIUM 8.8 MG/DL (8.5-10.1); CARBON DIOXIDE 22 MMOL/L (21-32); CHLORIDE 95 MMOL/L (98-107); CREATININE SERUM 1.39 MG/DL (0.60-1.30); GFR ESTIMATED 46; GLUCOSE 108 MG/DL (70-105); POTASSIUM 4.5 MMOL/L (3.6-5.0); SALICYLATE < 0.3 MG/DL (5.0-20.0); SODIUM 131 MMOL/L (135-145); TOTAL PROTEIN 7.2 GM/DL (6.4-8.2)
[2022-04-21 19:07] LABS: AMPHETAMINE SCREEN, URINE NEGATIVE (NEGATIVE); BARBITURATE SCREEN URINE NEGATIVE (NEGATIVE); BENZODIAZEPINES SCREEN URINE POSITIVE (NEGATIVE); CANNABINOID SCREEN, URINE NEGATIVE (NEGATIVE); COCAINE SCREEN URINE NEGATIVE (NEGATIVE); METHADONE STAT NEGATIVE (NEGATIVE); OPIATE SCREEN URINE NEGATIVE (NEGATIVE); OXYCODONE STAT NEGATIVE (NEGATIVE); PROPOXYPHENE STAT NEGATIVE (NEGATIVE); TRICYCLIC ANTIDEPRESSANTS SCRE NEGATIVE (NEGATIVE)
[2022-04-21 19:20] VITALS: BP 91/56
== END 2022-04-21 19:20 | disposition home or self-care (01) ==
LOC: EDUNIT# 17:19 → ER FS 17:20
DX: S06.0X1A Concussion with loss of consciousness of 30 minutes or less, initial encounter (principal); I95.1 Orthostatic hypotension; M25.571 Pain in right ankle and joints of right foot; M25.572 Pain in left ankle and joints of left foot; F41.9 Anxiety disorder, unspecified; R40.2140 Coma scale, eyes open, spontaneous, unspecified time; R40.2250 Coma scale, best verbal response, oriented, unspecified time; R40.2360 Coma scale, best motor response, obeys commands, unspecified time; Z79.899 Other long term (current) drug therapy; W01.0XXA Fall on same level from slipping, tripping and stumbling without subsequent striking against object, initial encounter
CPT/HCPCS: 36415; 70450; 73610; 80053; 80306; 85025; 99283; G0480 ×3; 80320; 80329; 93005